=== PATIENT | female | born 1975 | race Caucasian/White ===

== ENCOUNTER → 2016-08-03 | Outpatient (CLI) | payer BC ==
[~2016-08-03] MED LIST: MTR600X PO; OXYC-57 PO
[2016-08-03 16:05] LABS: BASO % 0.3 %; BASO ABS # 0.02 K/uL (0-0.2); COMPLETE YES; EOS % 2.2 %; HEMATOCRIT 33.1 % (37-47); IG% 0.1 %; LYMPH ABS # 1.46 K/uL (1.2-3.4); MEAN CELL VOLUME 83.2 fL (80-100); MEAN CORPUSCULAR HEMOGLOBIN 26.6 pg (25-34); MEAN PLATELET VOLUME 12.5 fL (7.4-10.4); MONO % 8.8 %; NEUT % 67.6 %; PLATELET COUNT 223 K/uL (130-400); RED BLOOD COUNT 3.98 M/uL (4.2-5.4); WHITE BLOOD COUNT 6.94 K/uL (4.8-10.8)
== END | disposition home or self-care (01) ==
LOC: C.LAB1850 14:06
PROVIDERS: ATTEND Obstetrics & Gynecology
DX: O09.529 Supervision of elderly multigravida, unspecified trimester (principal)

== ENCOUNTER → 2016-08-03 | Outpatient (CLI) | payer BC | END | disposition home or self-care (01) | LOC: C.PAPS 10:04 | PROVIDERS: ATTEND Obstetrics & Gynecology | DX: O24.419 Gestational diabetes mellitus in pregnancy, unspecified control (principal) ==

== ENCOUNTER → 2016-08-03 | Outpatient (CLI) | payer BC ==
[2016-08-03 16:44] LABS: URINE APPEARANCE CLOUDY (CLEAR); URINE BILIRUBIN NEG (NEG); URINE COLOR YELLOW; URINE EPITHELIAL CELL AUTO >30 /lpf (0-5); URINE NITRITE NEG (NEG); URINE PH 5.5 (4.5-7.5); URINE SPECIFIC GRAVITY 1.029 (1.000-1.030); UROBILINOGEN NEG (NEG)
[2016-08-03 16:50] LABS: MANUAL MICROSCOPIC REQUIRED? NO; REVIEW REQ? YES
[2016-08-06 15:43] LABS: CHLAMYDIA TRACH RNA*** NOT DETECTED (NOT DETECTED); GC (NEIS GONORRHOEAE)RNA** NOT DETECTED (NOT DETECTED)
== END | disposition home or self-care (01) ==
LOC: C.LABSPEC 16:13
PROVIDERS: ATTEND Obstetrics & Gynecology
DX: O09.529 Supervision of elderly multigravida, unspecified trimester (principal)

== ENCOUNTER → 2016-10-02 | Outpatient (CLI) | payer BC ==
[2016-10-04 15:29] LABS: AFP CONCENTRATION 29.8 NG/ML; AFP MULTIPLE OF MEDIAN 1.15; AFPTS GESTATIONAL AGE 16.9 WEEKS; AFPTS INSULIN DEP DIABETIC? YES; AFPTS MATERNAL WT 218 LBS; ALPHA-FETOPROTEIN RACE CAUCASIAN=W; HISTORY OF NTD NO; REPEAT SAMPLE? NO
== END | disposition home or self-care (01) ==
LOC: C.LAB1850 12:15
PROVIDERS: ATTEND Obstetrics & Gynecology
DX: O09.529 Supervision of elderly multigravida, unspecified trimester (principal)

== ENCOUNTER 2017-02-22 11:56 | Outpatient (CLI) | payer BC ==
[2017-02-22 12:33] LABS: HEMATOCRIT 26.1 % (37-47); MEAN CELL VOLUME 73.1 fL (80-100); MEAN CORPUSCULAR HEMOGLOBIN 22.4 pg (25-34); MEAN PLATELET VOLUME 10.7 fL (7.4-10.4); PLATELET COUNT 217 K/uL (130-400); RED CELL DISTRIBUTION WIDTH CV 15.6 % (11.5-14.5); RED CELL DISTRIBUTION WIDTH SD 42.2 fL (36.4-46.3); WHITE BLOOD COUNT 8.98 K/uL (4.8-10.8)
[2017-02-22 12:48] LABS: MEAN CORPUSCULAR HGB CONC 30.7 g/dl (32-36)
[2017-02-22 12:56] LABS: ALBUMIN 2.2 gm/dl (3.4-5.0); ALKALINE PHOSPHATASE 102 U/L (45-117); ALT/SGPT 10 U/L (12-78); AST/SGOT 11 U/L (15-37); CREATININE 0.39 mg/dl (0.60-1.20); URIC ACID 3.2 mg/dl (2.6-7.2)
[2017-03-07] MEDS ORDERED: HUMALOG SC (11:10)
[2017-03-07] MEDS ORDERED: HUMULIN SC (11:10)
[2017-03-07] MEDS ORDERED: HEMAPLEX PO (11:11)
[2017-03-07] MEDS ORDERED: PRENTAB26 PO (11:11)
[2017-03-07] MEDS ORDERED: DOCU1TAB6 PO (11:11)
== END 2017-02-22 13:30 | disposition home or self-care (01) ==
LOC: C.OPB 11:56 → C.LD 11:56 → C.OPB 11:58 → C.LD 13:30
PROVIDERS: ATTEND Obstetrics & Gynecology
DX: O12.13 Gestational proteinuria, third trimester (principal); O99.213 Obesity complicating pregnancy, third trimester; E66.01 Morbid (severe) obesity due to excess calories; O09.523 Supervision of elderly multigravida, third trimester; Z3A.37 37 weeks gestation of pregnancy

== ENCOUNTER 2017-03-08 05:08 | Inpatient (IN) | payer BC, OTHER ==
[2017-03-07 11:38] LABS: BASO % 0.1 %; BASO ABS # 0.01 K/uL (0-0.2); EOS % 0.9 %; EOS ABS # 0.08 K/uL (0-0.5); HEMATOCRIT 26.9 % (37-47); HEMOGLOBIN 8.1 g/dL (12.0-16.0); IG# 0.06 K/uL (0.00-0.02); LYMPH % 14.5 %; LYMPH ABS # 1.29 K/uL (1.2-3.4); MEAN CELL VOLUME 73.7 fL (80-100); MEAN CORPUSCULAR HEMOGLOBIN 22.2 pg (25-34); MONO % 7.3 %; MONO ABS # 0.65 K/uL (0.11-0.59); NEUT % 76.5 %; PLATELET COUNT 205 K/uL (130-400); RED CELL DISTRIBUTION WIDTH CV 17.3 % (11.5-14.5); RED CELL DISTRIBUTION WIDTH SD 46.6 fL (36.4-46.3); WHITE BLOOD COUNT 8.89 K/uL (4.8-10.8)
--- NOTE | 2017-03-07 11:38 | PAT Medication Instructions ---
Service Date Mar 07, 2017. Current Home Medication List Docusate Sodium (Docusate Sodium), 100 MG PO BID Multivit/Min/Iron/Fol Ac/Pren ( Vitamin), 1 TAB PO HS [Hemaplex], 1 TAB PO BID [Humalog], 20 UNITS SC TIDM [Humulin], 22 UNITS SC HS Medication Instructions For Your Scheduled Surgery - Hold the following medications the morning of surgery: [Humalog], 20 UNITS SC TIDM [Hemaplex], 1 TAB PO BID Docusate Sodium (Docusate Sodium), 100 MG PO BID - Take the following medications as scheduled the night before surgery: [Humulin], 22 UNITS SC HS [Hemaplex], 1 TAB PO BID Docusate Sodium (Docusate Sodium), 100 MG PO BID Multivit/Min/Iron/Fol Ac/Pren ( Vitamin), 1 TAB PO HS IF YOU HAVE LOW BLOOD SUGAR IN THE MIDDLE OF THE NIGHT, TAKE 4 OZ OF APPLE JUICE If you have any questions please call us at [phone] or [phone] or [phone]
[2017-03-07 11:46] LABS: MEAN CORPUSCULAR HGB CONC 30.1 g/dl (32-36)
--- NOTE | 2017-03-07 15:28 | HISTORY & PHYSICAL EXAMINATION ---
DATE OF ADMISSION: 03/08/2017 HISTORY OF PRESENT ILLNESS: Lili is currently . This is her 5th . She has had 3 prior sections. She is scheduled for repeat section at 39 weeks and 2 days. is complicated by a number risk factors: 1. She is morbidly obese. 2. She is insulin controlled gestational diabetes. 3. This is her third section. 4. She is severely anemic with hemoglobin of 8.1. has been complicated as mentioned by gestational diabetes. Her most recent ultrasound was 02/22/2017 revealing an abdominal circumference greater than the 98th percentile and estimated weight greater than 97th percentile. PAST MEDICAL HISTORY: As mentioned morbidly obese, anemic. MEDICATIONS: Insulin. DRUG ALLERGIES: None. SOCIAL HISTORY: She is nonsmoker. She is . FAMILY HISTORY: Negative. REVIEW OF SYSTEMS: Negative. PHYSICAL EXAMINATION: VITAL SIGNS: Stable. She is afebrile. CHEST: Clear. CARDIOVASCULAR: Normal rate and rhythm. No audible murmur. ABDOMINAL EXAMINATION: She is gravid. heart rate tones are reactive. CERVIX: Exam deferred at this time. IMPRESSION AND PLAN: This is a high risk . Patient has been advised that her risks of resection are increased. Specifically, being obese and also with gestational diabetes on insulin she has a higher risk of infection and also incision breakdown. With regards to this being her 4th section the patient is also at risk for increased blood loss and the possibility of hysterectomy. There is also increased risks of internal organ injury, specifically bladder, bowel, and ureter as scar tissue is likely increased as this will be her 4th section. The patient is adamant that she does not wish a tubal ligation. She was asked this on her preop visit of 03/07/2017. Thus, we are arranging for a section. Discussed risks including bleeding, infection, injury to bowel, bladder, ureter, deep vein thrombosis, pulmonary embolus, injury to the baby and failure of the incision to heal. There are not really alternatives as labor is not recommended with 3 prior sections. I discussed specifically her increased risk factors, patient seemed aware of this. We will make arrangements for blood to be crossed and typed as her hemoglobin is 8.1. Will assess on the morning of surgery. Plan for repeat Low transverse Caesarean Section MTDD
[~2017-03-08] VITALS: Ht 147.3 cm; Wt 109.1 kg
[2017-03-08] VITALS (12 sets, daily range): BP systolic 103–109; BP diastolic 68–70; PULSE 61–65; TEMP 36.3–36.6; O2SAT 94–99; Ht 147.3 cm; Wt 109.1 kg
[~2017-03-08 05:08] MED LIST changes: +DOCU1TAB6 PO; +HEMAPLEX PO; +HUMALOG SC; +HUMULIN SC; -MTR600X PO; -OXYC-57 PO; +PRENTAB26 PO
[2017-03-08] MEDS ORDERED: CEFAZOLIN IV 3,000 MG in SYRINGE 0 ML IV SCH (05:30)
[2017-03-08] MEDS ORDERED: LACTATED RINGER'S 1000ML 1,000 ML IV SCH ×3 (05:44→08:49)
[2017-03-08] MEDS ORDERED: CITRIC ACID/SODIUM CITRATE 15 ML UDC PO SCH (06:00)
[2017-03-08 06:01] LABS: HEMATOCRIT 29.1 % (37-47); HEMOGLOBIN 8.8 g/dL (12.0-16.0); MEAN CELL VOLUME 73.5 fL (80-100); MEAN CORPUSCULAR HEMOGLOBIN 22.2 pg (25-34); MEAN PLATELET VOLUME 11.1 fL (7.4-10.4); PLATELET COUNT 244 K/uL (130-400); RED CELL DISTRIBUTION WIDTH CV 17.4 % (11.5-14.5); RED CELL DISTRIBUTION WIDTH SD 46.3 fL (36.4-46.3); WHITE BLOOD COUNT 9.69 K/uL (4.8-10.8)
[2017-03-08 06:04] LABS: MEAN CORPUSCULAR HGB CONC 30.2 g/dl (32-36)
[2017-03-08] MEDS ORDERED: FERR1TAB23 (06:22)
[2017-03-08 06:46] LABS: BASO % 0.2 %; BASO ABS # 0.02 K/uL (0-0.2); EOS % 1.2 %; EOS ABS # 0.12 K/uL (0-0.5); IG# 0.06 K/uL (0.00-0.02); LYMPH % 20.7 %; LYMPH ABS # 2.01 K/uL (1.2-3.4); MONO % 6.8 %; MONO ABS # 0.66 K/uL (0.11-0.59); NEUT % 70.5 %; NEUT ABS # 6.82 K/uL (1.4-6.5)
[2017-03-08] MEDS ORDERED: ONDANSETRON INJ 2 MG/ML 2 ML VIAL ONE (06:49)
[2017-03-08] MEDS ORDERED: PHENYLEPHRINE HCL INJ 10 MG/ML VIAL ONE (06:49)
[2017-03-08] MEDS ORDERED: OXYTOCIN INJ 10 UNITS/ML VIAL ONE (06:49)
[2017-03-08] MEDS ORDERED: MoRPHine SULFATE PF 1 MG/ML 10 ML AMP/VIAL ONE (06:50)
--- NOTE | 2017-03-08 07:12 | History & Physical Bridge Note ---
H&P Re-Evaluation Bridge Note: I have examined the patient, reviewed the History & Physical and in the interval since the performance of the History & Physical I have noted the following changes of clinical significance: No changes noted Carefully reviewed with anesthesia and the patient and her the situation. Patient is anemic here for her for section she is morbidly obese diabetic on insulin with poor compliance discussed her increased risk for bleeding infection injury to bowel bladder ureter and also increased risk of poor wound healing we discussed the likelihood of blood was high she is crossed and typed for blood patient seems to understand our concerns
[2017-03-08] MEDS ORDERED: FENTANYL CITRATE INJ 50 MCG/1 ML 2 ML VIAL ONE (08:11)
[2017-03-08] MEDS ORDERED: PROPOFOL IV EMULSION 10 MG/ML 20 ML VIAL IV ONE (08:21)
[2017-03-08] MEDS ORDERED: SUCCINYLCHOLINE CHLORIDE 20 MG/ML 10 ML VIAL IV ONE (08:21)
--- NOTE | 2017-03-08 08:52 | [facility] Post Operative Brief Note ---
Immediate Operative Summary Operative Date Mar 08, 2017. Pre-Operative Diagnosis Repeat Low Transverse Caesarean Section Post-Operative Diagnosis SAME Procedure(s) Performed CAESAREAN DELIVERY FOR LIVE FEMALE AT [address] Komal Zheng Flyer Builder Surgeon(s) Dr. Leonard Laguna Estimated Blood Loss 500ml Findings Normal anatomy Specimens placenta cord blood arterial and venous cord blood gases Drains Agnt Anesthesia Epidural/General Complication(s) None Disposition L&D
[2017-03-08] MEDS ORDERED: LANOLIN OINT EXT PRN (09:00)
[2017-03-08] MEDS ORDERED: SUPERCREAM 0.870 % 15GM JAR EXT PRN (09:00)
[2017-03-08] MEDS ORDERED: HYDROCORTISONE ACETATE 25 MG SUPP PR PRN (09:00)
[2017-03-08] MEDS ORDERED: SENNA 8.6 MG TAB PO PRN (09:00)
[2017-03-08] MEDS ORDERED: MAGNESIUM HYDROXIDE SUSP 30 ML UDC PO PRN (09:00)
[2017-03-08] MEDS ORDERED: PROMETHAZINE HCL INJ 25 MG in SODIUM CHLORIDE 0.9% 50ML 50 ML IV PRN (09:00)
[2017-03-08] MEDS ORDERED: BENZOCAINE 20% AER SPR 82.5 GM CAN EXT PRN (09:00)
[2017-03-08] MEDS ORDERED: NALOXONE HCL INJ 1 MG in SODIUM CHLORIDE 0.9% 1000ML 1,000 ML IV PRN (09:07)
[2017-03-08] MEDS ORDERED: NALOXONE HCL INJ 0.08 MG in SYRINGE 1.8 ML IV PRN (09:07)
[2017-03-08] MEDS ORDERED: LACTATED RINGER'S 1000ML 500 ML IV PRN (09:07)
[2017-03-08] MEDS ORDERED: SODIUM CHLORIDE 0.9% 1000ML 1,000 ML IV PRN (09:07)
--- NOTE | 2017-03-08 09:09 | Anesthesiology Progress Note ---
Anesthesia Post Op Note Date & Time Mar 08, 2017 at 09:09 Notes Mental Status: alert / awake / arousable, participated in evaluation Pt Amnestic to Procedure: Yes Nausea / Vomiting: adequately controlled Pain: adequately controlled Airway Patency, RR, SpO2: stable & adequate BP & HR: stable & adequate Hydration State: stable & adequate Neuraxial Anesthesia: was administered, sensory block resolved Anesthetic Complications: no major complications apparent
[2017-03-08] MEDS ORDERED: NO NARCOTICS OR SEDATIVES SCH (09:15)
[2017-03-08] MEDS ORDERED: NALOXONE HCL 0.4 MG/1 ML VIAL/CARP IV PRN ×2 (09:15→10:30)
[2017-03-08] MEDS ORDERED: MoRPHine SULFATE PF 1 MG/ML 10 ML AMP/VIAL IT PRN (09:15)
[2017-03-08] MEDS ORDERED: KETOROLAC TROMETHAMINE 30 MG/ML VIAL IV. PRN (09:15)
[2017-03-08] MEDS ORDERED: ONDANSETRON INJ 2 MG/ML 2 ML VIAL IV PRN (09:15)
[2017-03-08] MEDS ORDERED: NALBUPHINE HCL INJ 10 MG/ML AMP IV PRN (09:15)
[2017-03-08] MEDS ORDERED: MoRPHine SULFATE 2 MG/ML CARP IV PRN (09:15)
[2017-03-08] MEDS ORDERED: DiphenhydrAMINE HCL 50 MG/ML VIAL IV PRN (09:15)
[2017-03-08] MEDS ORDERED: OXYTOCIN INJ 20 UNITS in LACTATED RINGER'S 1000ML 1,000 ML IV SCH (09:30)
[2017-03-08] MEDS ORDERED: ACETAMINOPHEN 1000 MG/100 ML IV IV ONE (09:30)
[2017-03-08] MEDS: MEPERIDINE HCL 25 MG/ML CARP IV PRN ×2 (09:41→09:56)
--- NOTE | 2017-03-08 09:45 | OPERATIVE REPORT ---
DATE OF OPERATION: 03/08/2017 PREOPERATIVE DIAGNOSIS: Repeat low transverse section, gestational diabetes on insulin, 39+ weeks. POSTOPERATIVE DIAGNOSIS: Same. PROCEDURE: Low transverse section. SURGEON: Jairo Zheng MD. CHALK CUTTER: Fahad Jones DO. ESTIMATED BLOOD LOSS: 500 mL. FINDINGS: Normal anatomy. SPECIMENS: Placenta, cord blood. DRAINS: Gant catheter. ANESTHETIC: Spinal converted to general. COMPLICATIONS: None. DISPOSITION: Labor and delivery. DESCRIPTION OF PROCEDURE: Lili was counseled prior to the procedure, was sent back for a spinal anestheti. Spinal was given. Gant catheter inserted. The patient was prepped and draped in supine position with a leftward tilt; however, the spinal block failed to full fill adequate block after multiple tests. As a result, a decision was made for general anesthetic. She was given a general and then scalpel used over the previous Pfannenstiel incision dissecting down through to the subcutaneous fat to the fascia in the midline. Fascia was then dissected laterally with the curved Steve scissors and then released superiorly and inferiorly from the rectus muscles. Peritoneal cavity entered bluntly and then opening enlarged to allow exposure. Bladder retractor then placed and then Metzenbaums used to dissect away the bladder flap. The low segment of the uterus was visible. It was exceptionally thin. Two very light swipes of the scalpel and I was already at the level of the membranes. Membranes were then ruptured bluntly with the electric cutter operator's finger and incision extended with the electric cutter operator's finger in the usual fashion. Baby was in vertex position. Fluid was clear. There was no nuchal cord. Baby was delivered by gentle flexion of the head and then pressure on the abdomen by the sound assistant. Live vigorous infant. Mouth suctioned and then nares. Cord clamped and cut. Cord gases obtained. Cord blood obtained. Placenta removed. IV Pitocin started. It should be noted 3 grams of Ancef was given preoperatively as well. Uterus was exteriorized. Hemostasis improved and tone improved with IV oxytocin. There was no extension on the uterus. Uterus closed in the usual fashion, a running 0 Monocryl locked and a second reinforcing 0 Monocryl nonlocked. After generous irrigation and suction of the cul-de-sac and bladder flap regions, uterus was placed back in the peritoneal cavity and hemostasis was excellent. Fascia closed with 0 Vicryl. After closure, we then put reinforcing 0 Vicryl interrupted sutures in as well for further support. Generous irrigation and suction of the subcutaneous fat and then fat closed with 3-0 Vicryl, skin closed with 4-0 subcuticular Monocryl and Steri-Strips, applied. Urine was clear at the end of the procedure. Sponge and instrument counts correct. We did discuss the option of blood transfusion; however, blood loss was only 500 mL and we will follow her closely. She may well need a unit of blood postoperatively as she came into the procedure with a low hemoglobin. I attest to the content of the Intraoperative Record and any orders documented therein. Any exception s are noted below.
[2017-03-08] MEDS ORDERED: SODIUM CHLORIDE 0.9% 1000ML 1,000 ML IV SCH (10:26)
[2017-03-08] MEDS: HYDROmorphone HCL 0.5MG/ML 50 ML CASSETTE IV PRN ×3 (11:13→19:13)
[2017-03-08] MEDS: EpHEDrine SULFATE INJ 50 MG/ML AMP IV PRN ×2 (11:34→12:11)
[2017-03-08 15:03] LABS: HEMATOCRIT 23.4 % (37-47); HEMOGLOBIN 7.1 g/dL (12.0-16.0)
[2017-03-08] MEDS: SIMETHICONE 80 MG CHEW PO SCH ×3 (17:00→20:27)
[2017-03-08] MEDS: DOCUSATE SODIUM 100 MG CAP PO SCH (20:27)
--- NOTE | 2017-03-08 21:05 | Discharge Instructions ---
Discharge Instructions Date of Service Mar 08, 2017. Admission Reason for Admission: History Of Section Discharge Discharge Diagnosis / Problem: recovery from csection Discharge Goals Goal(s): Routine recovery after Medications Continue Dispensed Medications: supercream, dermaplast, tucks, lansinoh Activity Recommendations Activity Limitations: per Instructions/Follow-up section . Instructions / Follow-Up Instructions / Follow-Up ACTIVITY RECOMMENDATIONS: * Gradual return to full activity over the next 2-3 weeks. * No lifting - nothing heavier than baby over the next 2-3 weeks. * Do not engage in vigorous exercise, sexual activity or sports until cleared by your physician. * Do not drive or operate any motorized equipment until cleared by your physician. * You may shower/bathe daily. MEDICATIONS: For discomfort or pain, you may use Acetaminophen (Tylenol), Ibuprofen (Advil), or Naproxen (Aleve) following the package directions. For constipation you may use Colace following the package directions. BREAST CARE: If you are not breast feeding: * Wear a supportive bra 24 hours a day for one to two weeks. * Avoid stimulating your breasts and nipples as much as possible during the first few weeks after delivery. * When taking a shower, have the warm water hit your back, not breasts. * When your breasts feel full, apply ice packs. Usually three to four times a day helps ease the discomfort. * Take a mild pain medication (Tylenol / Motrin) when you are uncomfortable. If breast feeding: * Use breast milk to lubricate nipples. Lansinoh cream may be used for sore nipples. You do not need to remove cream prior to breast feeding. If using a different brand of cream, check the label for directions regarding removal of cream prior to nursing. * Wear a supportive bra. * If having problems with breasts or breast feeding, call a field consultant or your health care provider. SPECIAL CARE INSTRUCTIONS: When you are discharged from the hospital, it is important for you to follow the instructions listed below: * During the first week at home, you should be able to care for yourself and your baby. In addition, the usual light household activities are encouraged. * Limit your activities to the way you feel. Do not try to clean the house or move furniture. Be sensible. * If you actively engage in sports and have done so up until the time of your delivery, you may resume these activities as soon as you feel able. This may take up to one month or even longer. Use good judgment. * Continue to take your vitamins for at least six weeks after the of your baby. * Your diet need not be limited unless you were on a special diet before your delivery. Breast-feeding mothers need around 2500 calories per day and at least 64-80 ounces of fluid per day (8 to 10 glasses). * You should eat foods from the four major food groups. Crash diets or fad diets are to be avoided. Eating lean meats, fresh fruits and vegetables, low-fat dairy products, high fiber foods and a regular exercise program, will help you get back to your pre- weight without putting your health at risk. * Constipation is sometimes a problem after delivery. Take a mild laxative as needed. If breast feeding, Milk of Magnesia is acceptable to use. You may use a suppository or Fleets enema. * A daily shower or tub bath is suggested. Wash incision daily with warm soapy water and pat dry. It doesn't need to be covered unless drainage is present. * A bloody vaginal discharge will usually continue until around four weeks . A small amount of bleeding may continue for as long as six weeks. Vaginal discharge changes from the bright red bleeding after delivery to pink then brownish and finally yellowish-pink before becoming white and disappearing. * Bleeding may increase with activity. Your first period may come in 4-8 weeks. If you are breast feeding, your period may be delayed even longer. * [place] (sex) can begin whenever both you and your partner feel comfortable and do not have any form of genital infection. It is recommended that you wait at least six weeks for internal and external healing to occur. If you have questions, please talk to your health care practitioner. A condom should be used to prevent infection and . * Foreplay, gentle intercourse and lubrication is very important the first several times to prevent pain. A water-based lubricant such as K-Y jelly or Astroglide may be used. * If you have RH negative blood and your baby is RH positive, you will receive RHOGAM by injection prior to discharge. The nurse will give you a card to keep with you that has the date and place that you received RHOGAM after delivery. * During your care, you had a Rubella screen done to check for the presence of rubella antibodies in your blood. If your test was negative, you will receive a Rubella vaccine prior to discharge. This vaccine may cause a fever, soreness at the injection site and flu-like symptoms. If these symptoms persist, notify your health care practitioner. is not advised for one month after a Rubella vaccine. * Verbalizes understanding of car seat law as reviewed with patient nursing. * Car Seat hand-out given and reviewed with patient by nursing. * Shaken baby information reviewed with patient by nursing. Call you doctor if: * Heavy bleeding (saturating several pads an hour) or passing clots the size of your fist. * A fever >101 degrees F (38.3 degrees C) on two occasions four hours apart and /or chills. * Unusual pain in the pelvic or vaginal areas. * Call the doctor for any increased redness, drainage or swelling around the incision and any pain unrelieved by prescribed pain medication. * "Baby Blues" lasting longer than two weeks. If you have any questions or concerns, call your health care practitioner at . FOLLOW UP VISIT: * Please call the office at to schedule a 6 week examination. It is important you keep this appointment. It is important for you to make arrangements for either yearly or twice yearly check-ups thereafter. Current Hospital Diet Patient's current hospital diet: Clear Liquid Diet Discharge Diet Recommended Diet: Regular OB Diet Procedures Procedures Performed: CAESAREAN DELIVERY FOR LIVE FEMALE INFANT AT 0815 Pending Studies Studies pending at discharge: no Medical Emergencies . Who to Call and When: Medical Emergencies: If at any time you feel your situation is an emergency, please call [phone] immediately. . Non-Emergent Contact Non-Emergency issues call your: Other Wood Processing Machine Operator . . "Provider Documentation" section prepared by You Meade. . VTE Core Measure Inpt VTE Proph given/why not?: SCD's
[2017-03-09] VITALS (7 sets, daily range): BP systolic 102–113; BP diastolic 58–68; PULSE 58–95; TEMP 36.6–36.9; O2SAT 92–94
[2017-03-09] MEDS ORDERED: DiphenhydrAMINE HCL 50 MG/ML VIAL IV PRN (01:40)
[2017-03-09] MEDS ORDERED: MEPERIDINE HCL 50 MG/ML CARP IV PRN ×2 (01:40)
[2017-03-09] MEDS ORDERED: ONDANSETRON INJ 2 MG/ML 2 ML VIAL IV PRN (01:40)
[2017-03-09] MEDS ORDERED: ZOLPIDEM TARTRATE 5 MG TAB PO PRN (01:40)
[2017-03-09] MEDS ORDERED: KETOROLAC TROMETHAMINE 30 MG/ML VIAL IV. PRN (01:40)
[2017-03-09] MEDS ORDERED: DC INTRASPINAL MORPHINE SCH (01:40)
[2017-03-09] MEDS ORDERED: OXYCODONE/ACETAMINOPHEN 5-325 TAB PO PRN (01:40)
--- NOTE | 2017-03-09 06:13 | OB/GYN Progress Note ---
PUMP SERVICER Progress Note Date of Service Mar 09, 2017. Subjective conversation w/ patient, conversation w/ family, physical exam, chart review, lab review Ambulation: limited ambulation Voiding: sandoval catheter in place (just removed this morning ) Passing Gas: No Diet Tolerance: Clear Liquids Lochia: Small Feeding Type: Breast Feeding Review of Systems Constitutional: No fever, No chills Respiratory: No cough, No shortness of breath Cardiac: No chest pain Abdomen: No nausea, No vomiting Female : No dysuria Objective Vital Signs Date Time Temp Pulse Resp B/P (MAP) Pulse Ox O2 Delivery O2 Flow Rate FiO2 03/09/17 04:00 36.8 60 16 103/65 (78) 94 Room Air 03/09/17 01:00 14 92 03/09/17 00:30 94 Room Air 03/09/17 00:30 36.6 58 15 103/58 (73) Room Air 03/09/17 00:00 15 94 03/08/17 23:00 15 94 03/08/17 22:00 16 96 03/08/17 21:00 16 96 03/08/17 20:00 16 99 03/08/17 19:55 36.3 61 16 104/70 (81) 99 Room Air 03/08/17 19:00 12 95 03/08/17 18:00 14 94 03/08/17 17:00 14 95 03/08/17 16:00 20 98 03/08/17 16:00 36.6 61 20 103/68 (80) 96 Room Air 03/08/17 16:00 96 Room Air 03/08/17 15:00 16 98 03/08/17 14:00 14 96 03/08/17 12:50 98 Room Air 03/08/17 12:50 20 98 03/08/17 12:50 36.6 65 20 109/68 (82) 98 Room Air Physical Exam General Appearance: WELL-APPEARING, WD/WN, NO APPARENT DISTRESS Respiratory/Chest: lungs clear, normal breath sounds Cardiovascular: regular rate, rhythm Abdomen: non tender, soft Fundus: Firm Incision Description: Clean, Dry & Intact Extremities: non-tender, normal inspection Laboratory Results Last 24 Hours Test 03/08/17 06:11 03/08/17 09:00 03/08/17 14:33 03/09/17 06:00 Bedside Glucose 91 mg/dl 112 mg/dl Hemoglobin 7.1 g/dL Hematocrit 23.4 % Assessment and Plan Post-Op Day Number: 1 Continue Routine Care: 39 f now 4 delivered via csection. Post op day 1. GBS status unknown/O+/ RI. Pt is doing well. Vitals WNL. Patient Hgb was 8.1 on admission, 7.1 (03/08), 6.8 this am Sandoval catheter was removed this morning, will follow i/o Plan; 1. Recovery from csection; continue pp care; ambulate, monitor lochia, support breast feeding, control pain 2. Anemia- Continue PNV, Fe Resident Physician Supervision Note: I interviewed and examined the patient. Discussed with Dr. Meade and agree with findings and plan as documented in the note. Any exceptions or clarifications are listed here: Patient is significantly anemic I did discuss the option of transfusion at this stage she feels well and declines this option we will see how she performs today and if she is not doing well and would strongly recommend transfusion at that time Secondly I have strongly recommended the intermittent compression stockings stay on every time she is in bed she is at risk for a DVT or pulmonary embolus and I have told her this. Recent morbid obesity and recent section place her at risk she states she understands and will wear them Documented By: Jairo Zheng
[2017-03-09 06:34] LABS: HEMATOCRIT 22.5 % (37-47); HEMOGLOBIN 6.8 g/dL (12.0-16.0); MEAN CELL VOLUME 73.1 fL (80-100); MEAN CORPUSCULAR HEMOGLOBIN 22.1 pg (25-34); MEAN CORPUSCULAR HGB CONC 30.2 g/dl (32-36); MEAN PLATELET VOLUME 9.9 fL (7.4-10.4); PLATELET COUNT 185 K/uL (130-400); RED CELL DISTRIBUTION WIDTH CV 17.1 % (11.5-14.5); RED CELL DISTRIBUTION WIDTH SD 45.7 fL (36.4-46.3); WHITE BLOOD COUNT 8.07 K/uL (4.8-10.8)
[2017-03-09 06:46] LABS: BASO % 0.1 %; BASO ABS # 0.01 K/uL (0-0.2); EOS % 1.5 %; EOS ABS # 0.12 K/uL (0-0.5); IG# 0.04 K/uL (0.00-0.02); LYMPH % 15.9 %; LYMPH ABS # 1.28 K/uL (1.2-3.4); MONO % 7.9 %; MONO ABS # 0.64 K/uL (0.11-0.59); NEUT % 74.1 %; NEUT ABS # 5.98 K/uL (1.4-6.5)
[2017-03-09] MEDS: HYDROmorphone HCL 0.5MG/ML 50 ML CASSETTE IV PRN (07:12)
[2017-03-09] MEDS ORDERED: DC PCA ONE (07:30)
[2017-03-09] MEDS: PRENATAL VITAMIN TAB PO SCH (08:30)
[2017-03-09] MEDS: DOCUSATE SODIUM 100 MG CAP PO SCH ×2 (08:30→20:24)
[2017-03-09] MEDS: SIMETHICONE 80 MG CHEW PO SCH ×4 (08:31→20:24)
[2017-03-09] MEDS: IBUPROFEN 600 MG TAB PO PRN ×4 (08:31→20:25)
[2017-03-09] MEDS: OXYCODONE/ACETAMINOPHEN 5-325 TAB PO PRN ×4 (08:31→20:26)
[2017-03-09] MEDS ORDERED: BISACODYL 5 MG TABEC PO ONE (22:00)
[2017-03-10] MEDS ORDERED: MTR600X PO (00:30)
[2017-03-10] MEDS ORDERED: OXYC-57 PO (00:30)
[2017-03-10] MEDS: IBUPROFEN 600 MG TAB PO PRN ×3 (00:54→12:13)
[2017-03-10] MEDS: OXYCODONE/ACETAMINOPHEN 5-325 TAB PO PRN ×3 (00:55→12:12)
[2017-03-10 06:40] LABS: HEMATOCRIT 22.9 % (37-47); HEMOGLOBIN 6.8 g/dL (12.0-16.0)
[2017-03-10] MEDS: DOCUSATE SODIUM 100 MG CAP PO SCH (07:48)
[2017-03-10] MEDS: PRENATAL VITAMIN TAB PO SCH (07:48)
[2017-03-10] MEDS: SIMETHICONE 80 MG CHEW PO SCH ×2 (07:48→12:12)
[2017-03-10 08:03] VITALS: BP 101/65; PULSE 74; TEMP 36.8; O2SAT 98
--- NOTE | 2017-03-10 08:44 | Progress Note ---
Subjective Mar 10, 2017. Subjective conversation w/ patient, physical exam Ambulation: ambulating normally Voiding: no voiding problems, sandoval catheter in place (just removed this morning ) Passing Gas: Yes Diet Tolerance: Regular Diet Lochia: Small Feeding Type: Breast Feeding Review of Systems Breast: No see HPI, No breast lump, No change in shape, No nipple discharge, No breast pain, No problem reported Female : No see HPI, No dysuria, No urinary frequency, No hematuria, No incontinence, No abnormal vaginal bleeding, No vaginal discharge, No problem reported Objective Vital Signs Date Time Temp Pulse Resp B/P (MAP) Pulse Ox O2 Delivery O2 Flow Rate FiO2 03/10/17 08:03 36.8 74 16 101/65 (77) 98 Room Air 03/09/17 23:55 Room Air 03/09/17 23:55 36.7 71 18 103/68 (80) Room Air 03/09/17 15:30 36.9 73 20 102/64 (77) Room Air 03/09/17 15:30 Room Air Physical Exam General Appearance: WELL-APPEARING, NO APPARENT DISTRESS Abdomen: non tender, soft Fundus: Firm, Non-Tender, Relation to Umbilicus Incision Description: Clean, Dry & Intact Extremities: no calf tenderness Laboratory Results Last 24 Hours Test 03/10/17 05:45 Hemoglobin 6.8 g/dL Hematocrit 22.9 % Assessment and Plan Post-Op Day#: 2 Continue Routine Care: stable post-op course Hgb is 6.8 today discharge to home follow up in 6 weeks or PRN scripts for percocet & motrin given to the patient
[2017-03-10 11:03] VITALS: BP 97/63; PULSE 86; TEMP 36.7; O2SAT 98
[2017-03-10 13:50] VITALS: BP_DIAS 63; PULSE 86; TEMP 36.7
[2017-03-10] MEDS ORDERED: BISACODYL 10 MG SUPP PR PRN (22:45)
--- NOTE | 2017-03-11 08:45 | DISCHARGE SUMMARY ---
Lili had a section on 03/08/2017. This was her 4th section and operative note has been dictated. The procedure was uncomplicated. HOSPITAL COURSE: The patient was severely anemic coming into surgery with a hemoglobin of 8.0. She decreased to a 6.8 after section. Blood transfusion was discussed, but the patient felt well and declined the option and we agreed as she was functioning well. SUBJECTIVE: The patient was ambulating, tolerating oral diet and had pain controlled by oral medication. She had no extremity pain. PHYSICAL EXAMINATION: Done by Dr. Finney: VITAL SIGNS: Stable. She was afebrile. ABDOMEN: Benign. Incision clean, dry and intact. EXTREMITIES: Negative. Uterus firm. Abdomen nontender. IMPRESSION AND PLAN: Hemoglobin 6.8 on discharge. The patient advised to take iron and given prescriptions for Percocet and Motrin and told to follow up in the office with any concerns.
== END 2017-03-10 13:50 | disposition home or self-care (01) | DRG 765 ==
LOC: C.LD 05:08 → EDSTATUS 09:58 → C.OBG 13:32
PROVIDERS: ADMIT Obstetrics & Gynecology; ATTEND Obstetrics & Gynecology
PROC: 10D00Z1 Extraction of Products of Conception, Low, Open Approach (ICD-10-PCS; principal; 2017-03-08 07:30)
DX: O34.211 Maternal care for low transverse scar from previous cesarean delivery (principal); Z68.43 Body mass index [BMI] 50.0-59.9, adult; O24.424 Gestational diabetes mellitus in childbirth, insulin controlled; O99.214 Obesity complicating childbirth; O99.02 Anemia complicating childbirth; D64.9 Anemia, unspecified; E66.01 Morbid (severe) obesity due to excess calories; Z79.4 Long term (current) use of insulin; Z37.0 Single live birth; Z3A.39 39 weeks gestation of pregnancy